=== PATIENT | female | born 1995 ===

== ENCOUNTER 2021-09-14 09:37 | Day surgery (SDC) | payer OTHER ==
[~2021-09-14] VITALS: Ht 170.2 cm; Wt 61.7 kg
--- NOTE | 2021-09-14 10:29 | NUR ---
Ambulatory in Day Surgery History, Chart, Medications and Allergies reviewed before start of procedure.Patient confirms NPO status and agrees with scheduled surgery. Pre-Op teaching done. Pt verbalizes understanding. Patient States Post-Procedure ride home has been arranged.
--- NOTE | 2021-09-14 12:39 | NUR ---
Discharge instructions reviewed with patient. Patient verbalizes understanding. Copy given to patient to take home. Discharged via wheelchair to private car for ride home.
--- NOTE | 2021-09-15 14:28 | NUR ---
09/15/21 1428 Madeleine Myers VERIFICATIONS: EDIT CHART.
== END 2021-09-14 12:41 | disposition home or self-care (01) ==
LOC: ORSCMMR 09:37 → ORD 09:37 → ORSCMMR 09:39 → ORD 12:41
PROVIDERS: Obstetrics & Gynecology
PROC: 10D17ZZ Extraction of Products of Conception, Retained, Via Natural or Artificial Opening (ICD-10-PCS; principal; 2021-09-14 11:15)
DX: O03.4 Incomplete spontaneous abortion without complication (principal)
CPT/HCPCS: 88305; J0690; J1100; J1885; J2250; J2405; J2704; J3010; J7120